=== PATIENT | male | born 1980 | race Caucasian/White ===

== ENCOUNTER 2016-10-15 17:02 | Inpatient (IN) | payer SELFPAY ==
[~2016-10-15] VITALS: Ht 185.4 cm; Wt 86.2 kg
--- NOTE | 2016-10-15 17:15 | NUR ---
pt bibra from homr to er bed 09 c/o lower back pain x 12 days. denies trauma. no back issues. pt states worst today. placed on monitor. awaiting md isaacs.
--- NOTE | 2016-10-15 17:16 | NUR ---
FRANCISCO CUNNINGHAM AT BEDSIDE FOR EVAL.
[2016-10-15] MEDS ORDERED: ONDANSETRON HCL/PF - ER 4 MG/2 ML VIAL IV ONE (17:30)
[2016-10-15] MEDS ORDERED: IV NS 0.9% 1,000 ML BAG IV ONE ×2 (17:30→19:30)
[2016-10-15] MEDS ORDERED: MORPHINE SULFATE INJ 2 MG/ML DISP.SYRIN IV ONE (17:30)
[2016-10-15] MEDS ORDERED: ONDANSETRON HCL/PF 4 MG/2 ML VIAL ONE (17:45)
[2016-10-15] MEDS ORDERED: MORPHINE SULFATE INJ 4 MG/ML DISP.SYRIN ONE (17:45)
[2016-10-15] MEDS ORDERED: HYDROMORPHONE 1 MG/1 ML DISP.SYRIN ONE (18:46)
[2016-10-15] MEDS ORDERED: HYDROMORPHONE 1 MG/1 ML DISP.SYRIN IV ONE (19:00)
--- NOTE | 2016-10-15 19:02 | NUR ---
PT IN TOO MUCH PAIN, WANTS TO HOLD OFF ON CT SCAN. ER WILL CALL WHEN READY.
[2016-10-15 20:28] LABS: BASOPHILS # (AUTO) 0.5 /CMM (0.0-0.2); BASOPHILS % (AUTO) 3.5 % (0.0-2.0); EOSINOPHILS % (AUTO) 0.3 % (0.0-6.0); HEMATOCRIT 41 % (39-51); HEMOGLOBIN 13.7 g/dL (13.5-17.5); LYMPHOCYTES # (AUTO) 1.3 /CMM (0.8-4.8); LYMPHOCYTES % (AUTO) 10.1 % (20.0-44.0); MEAN CORPUSCULAR HEMOGLOBIN 31 PG (26.0-33.0); MEAN CORPUSCULAR HGB CONC 33 g/dl (31.0-36.0); MEAN CORPUSCULAR VOLUME 93 fL (80-96); MONOCYTES # (AUTO) 0.7 /CMM (0.1-1.30); MONOCYTES % (AUTO) 5.7 % (2.0-12.0); NEUTROPHILS # (AUTO) 10.6 /CMM (1.8-8.9); NEUTROPHILS % (AUTO) 80.4 % (43.0-81.0); PLATELET COUNT (AUTO) 649 /CMM (150-450); RDW COEFFICIENT OF VARIATION 12.8 (11.5-15.0); RED BLOOD CELL COUNT(AUTO) 4.44 MIL/uL (4.5-6.0); WHITE BLOOD COUNT (AUTO) 13.1 K/uL (4.3-11.0)
[2016-10-15 20:36] LABS: CALCIUM, SERUM 9.3 mg/dL (8.5-10.1); CREATININE 0.9 mg/dL (0.6-1.3); POTASSIUM 4.6 mmol/L (3.5-5.1)
--- NOTE | 2016-10-15 20:36 | NUR ---
Note danette in EDM - 10/15/16 at 2042 by ALVARO pt bibra from homr to er bed 09 c/o lower back pain x 12 days. denies trauma. no back issues. pt states worst today. placed on monitor. awaiting md isaacs.
--- NOTE | 2016-10-15 20:39 | NUR ---
CALLED NURSING SUP. FOR MS BED
[2016-10-15 21:12] LABS: INR 1.05 (0.87-1.13); PROTHROMBIN TIME 10.9 SECS (9.5-12.7)
--- NOTE | 2016-10-15 21:14 | NUR ---
report given to mariaa. pt awaiting transfer to floor.
[2016-10-15 21:30] VITALS: BP 119/64
[2016-10-15 21:40] VITALS: BP 119/64
[2016-10-15] MEDS ORDERED: MAGNESIUM HYDROXIDE 30 ML UDC PO PRN (22:00)
[2016-10-15] MEDS ORDERED: MAG HYDROX/AL HYDROX/SIMETH 30 ML UDC PO PRN (22:00)
[2016-10-15] MEDS ORDERED: ONDANSETRON HCL/PF 4 MG/2 ML VIAL IVP PRN (22:00)
[2016-10-15] MEDS ORDERED: ACETAMINOPHEN 325 MG TABLET PO PRN (22:00)
[2016-10-15] MEDS ORDERED: ZOLPIDEM TARTRATE 5 MG TABLET PO PRN (22:00)
[2016-10-15] MEDS ORDERED: Z GUARD REMEDY 2 OZ OINT TP PRN (22:00)
[2016-10-15] MEDS ORDERED: DEXAMETHASONE SOD PHOSPHATE 4 MG/ML VIAL ONE (22:15)
[2016-10-15] MEDS ORDERED: CEFTRIAXONE 1 G VIAL ONE (22:16)
[2016-10-15] MEDS ORDERED: CEFTRIAXONE 1 G in IV D5W 50 ML IV SCH (22:30)
--- NOTE | 2016-10-15 22:30 | NUR ---
RN NOTE; ADMITTED A 36Y/O, M ,A, OX4. BREATHING EVENLY. NO SOB/. NO DISTRESS, SKIN WARM AND DRY. W/ C/O SEVERE BACK PAIN UPON MOVEMENT . MEDICAL HX WAS OBTAINED FROM THE PT . VS OBTAINED . PT W/ MILD FEVER. COOLING MEASURES TO BE APPLIED. NEEDS ATTENDED . ASSISTED W/ ADLS . CALL LIGHT WITHIN REACH .WILL CONT TO MONITOR .
[2016-10-15] MEDS: DEXAMETHASONE SOD PHOSPHATE 4 MG/ML VIAL IV SCH (22:36)
[2016-10-15] MEDS ORDERED: ZOLPIDEM TARTRATE 5 MG TABLET ONE (22:42)
--- NOTE | 2016-10-15 22:43 | NUR ---
MEHRDAD GIVEN PER PT'S REQUEST FOR INSOMNIA. WILL CONT TO MONITOR
--- NOTE | 2016-10-16 | NUR ---
INFORMED RUI RUEDA REGARDING PT'S FEVER. SENIOR ABAP DEVELOPER W/ A NEW ORDER FOR U/A AND URINE CULTURE. AND BLOOD CULTURE WHICH WAS ALREADY DRAWN AT THE ER. WILL CONT TO MONITOR.
[2016-10-16 03:34] LABS: APPEARANCE,URINE CLEAR (CLEAR); BILIRUBIN,URINE NEGATIVE (NEGATIVE); BLOOD, URINE NEGATIVE Ery/uL (NEGATIVE); KETONES,URINE NEGATIVE (NEGATIVE); LEUKOCYTE ESTERASE ,URINE NEGATIVE (NEGATIVE); NITRITE, URINE NEGATIVE (NEGATIVE); PH,URINE 7.5 (5.0-8.0); PROTEIN,URINE NEGATIVE (NEGATIVE); UGLUCOSE NEGATIVE (NEGATIVE); UROBILINOGEN,URINE 0.2 EU/dL (0.2)
[2016-10-16 03:39] LABS: COLOR,URINE Light yellow (YELLOW)
--- NOTE | 2016-10-16 06:25 | NUR ---
TEXTED DR. NUNEZ FOR MRI APPROVAL.
--- NOTE | 2016-10-16 06:33 | NUR ---
RN NOTE; PT IN BED AWAKE AND ALERT. BREATHING EVENLY. NO SOB,. NAD. NO C/O PAIN OR DISCOMFORT AT THIS TIME. . NO ACUTE EVENT OVER NIGHT. ON ONGOING IVF HYDRATION JUVENCIO WELL. NEEDS ATTENDED .ASSISTED W/ ADLS. CALL LIGHT WITHIN REACH .WILL CONT TO MONITOR AND WILL ENDORSE TO AM SHIFT FOR THUY.
[2016-10-16 06:57] LABS: HEMATOCRIT 37 % (39-51); HEMOGLOBIN 12.7 g/dL (13.5-17.5); LYMPHOCYTES % (AUTO) 9.7 % (20.0-44.0); MEAN CORPUSCULAR HEMOGLOBIN 32 PG (26.0-33.0); MEAN CORPUSCULAR HGB CONC 34 g/dl (31.0-36.0); MEAN CORPUSCULAR VOLUME 93 fL (80-96); MONOCYTES # (AUTO) 0.4 /CMM (0.1-1.30); MONOCYTES % (AUTO) 4.2 % (2.0-12.0); NEUTROPHILS # (AUTO) 9.1 /CMM (1.8-8.9); NEUTROPHILS % (AUTO) 86.1 % (43.0-81.0); PLATELET COUNT (AUTO) 570 /CMM (150-450); RDW COEFFICIENT OF VARIATION 13.8 (11.5-15.0); RED BLOOD CELL COUNT(AUTO) 3.97 MIL/uL (4.5-6.0); WHITE BLOOD COUNT (AUTO) 10.6 K/uL (4.3-11.0)
--- NOTE | 2016-10-16 07:30 | NUR ---
MS RN NOTES RECEIVED REPORT WITH PATIENT RESTING COMFORTABLY IN BED. PATIENT IS A/OX4. NO S/S OF SOB OR DISTRESS NOTED. IV IS PATENT AND INTACT. CALL LIGHT IS WITHIN REACH. BED IS IN THE LOWEST, LOCKED POSITION. WILL CONTINUE TO MONITOR THROUGHOUT SHIFT.
[2016-10-16 07:43] LABS: ALBUMIN 2.7 g/dL (3.4-5.0); BILIRUBIN,TOTAL 0.5 mg/dL (0.2-1.0); CALCIUM, SERUM 8.6 mg/dL (8.5-10.1); CREATININE 0.8 mg/dL (0.6-1.3); TOTAL PROTEIN, SERUM 7.4 g/dL (6.4-8.2)
[2016-10-16 07:47] LABS: THYROID STIMULATING HORMONE 0.247 uIU/mL (0.358-3.74)
[2016-10-16 08:00] VITALS: BP 119/69
[2016-10-16] MEDS: DEXAMETHASONE SOD PHOSPHATE 4 MG/ML VIAL IV SCH ×2 (08:21→17:28)
[2016-10-16] MEDS: HYDROCODONE/APAP 5/325MG 1 EACH TABLET PO PRN ×3 (08:27→17:48)
[2016-10-16] MEDS ORDERED: AMPH30TA3 PO (08:46)
[2016-10-16] MEDS ORDERED: DIAZEPAM 5 MG TABLET PO PRN (10:00)
[2016-10-16] MEDS: IV NS 0.9% 1,000 ML IV PRN (13:32)
[2016-10-16 16:46] VITALS: BP 115/62
[2016-10-16] MEDS ORDERED: GADOVERSETAMIDE 2.5 MMOL/5 ML VIAL IJ ONE (18:30)
--- NOTE | 2016-10-16 19:21 | NUR ---
MS RN NOTES PATIENT IS A/OX4. PATIENT RESTING COMFORTABLY IN BED. NO S/S OF SOB OR DISTRESS NOTED. IV IS PATENT AND INTACT. ALL PATIENT NEEDS MET. PAIN MANAGED. BED IS IN LOWEST, LOCKED POSITION. CALL LIGHT WITHIN REACH. WILL ENDORSE TO PM SHIFT.
[2016-10-16 20:00] VITALS: BP 115/79
[2016-10-16] MEDS: HYDROMORPHONE INJ 2 MG/ML DISP.SYRIN IV PRN (21:58)
[2016-10-16] MEDS: CEFTRIAXONE 1 G in IV D5W 50 ML IV SCH (22:37)
[2016-10-17] MEDS: HYDROMORPHONE INJ 2 MG/ML DISP.SYRIN IV PRN ×5 (01:55→21:47)
[2016-10-17] MEDS: IV NS 0.9% 1,000 ML IV PRN ×2 (05:08→17:22)
--- NOTE | 2016-10-17 06:55 | NUR ---
MS RN NOTES AWAKE & RESPONSIVE. NOT IN ANY DISTRESS. NO SOB NOTED. DENIES ANY PAIN OR DISCOMFORT AT THIS TIME. WITH IVF INFUSING WELL. MONITORED ACCORDINGLY. CALL LIGHT WITHIN REACH. BED IN LOWEST POSITION. SR UP X3 WITH BED ALARM ON FOR SAFETY . CALL LIGHT WITHIN REACH. BED IN LOWEST POSITION. WILL ENDORSE TO NEXT SHIFT.
--- NOTE | 2016-10-17 07:58 | NUR ---
MS RN OPENING NOTES RECEIVED PT. FROM NIGHTSHIFT NURSE IN STABLE CONDITION. PT. IS A/O X4. NO SOB OR SIGNS NOTED. BREATHING IS EVEN AND UNLABORED. PT COMPLAINS OF A THROBBING, PINCHING PAIN ON HIS RIGHT LOWER BACK RATED A 9/10. WILL ADMINISTER PAIN MEDICATION. IV PRESENT ON ON LEFT FA 20G INFUSING NS @ 75ML/HR. PT. TOLERATING INFUSION WELL. NO REDNESS OR SIGNS OF INFILTRATION NOTED. BED IN LOW LOCKED POSITION, SIDE RAILS UP X2, CALL LIGHT WITHIN REACH. WILL CONTINUE TO MONITOR.
[2016-10-17 08:00] VITALS: BP 121/70
[2016-10-17] MEDS: DEXAMETHASONE SOD PHOSPHATE 4 MG/ML VIAL IV SCH ×2 (08:39→17:22)
[2016-10-17] MEDS: HYDROCODONE/APAP 5/325MG 1 EACH TABLET PO PRN ×4 (09:51→23:07)
[2016-10-17 16:00] VITALS: BP 120/68
--- NOTE | 2016-10-17 18:38 | NUR ---
MS RN CLOSING NOTES PT. REMAINS IN STABLE CONDITION. ALL NEEDS WERE MET DURING SHIFT AND ORDERS CARRIED OUT ACCORDINGLY. PT. STILL REMAINS IN PAIN BUT STATES THAT PAIN IS TOLERABLE WITH PRN NORCO AND DILAUDID. LUMBAR BRACE AT BEDSIDE AND TO BE USED WHEN AMBULATING OR SITTING. PT. VERBALIZES UNDERSTANDING. ALL SAFETY MEASURES REMAIN IN PLACE. WILL ENDORSE TO NIGHTSHIFT NURSE FOR THUY
[2016-10-17 20:00] VITALS: BP 118/57
[2016-10-17] MEDS: CEFTRIAXONE 1 G in IV D5W 50 ML IV SCH (23:07)
[2016-10-18] MEDS: HYDROMORPHONE INJ 2 MG/ML DISP.SYRIN IV PRN ×5 (02:01→20:37)
[2016-10-18] MEDS: HYDROCODONE/APAP 5/325MG 1 EACH TABLET PO PRN ×5 (03:10→22:16)
[2016-10-18 06:43] LABS: BASOPHILS % (AUTO) 0.2 % (0.0-2.0); EOSINOPHILS % (AUTO) 0.2 % (0.0-6.0); HEMATOCRIT 36 % (39-51); HEMOGLOBIN 12.2 g/dL (13.5-17.5); LYMPHOCYTES # (AUTO) 2.1 /CMM (0.8-4.8); LYMPHOCYTES % (AUTO) 21.7 % (20.0-44.0); MEAN CORPUSCULAR HEMOGLOBIN 32 PG (26.0-33.0); MEAN CORPUSCULAR HGB CONC 34 g/dl (31.0-36.0); MEAN CORPUSCULAR VOLUME 93 fL (80-96); MONOCYTES # (AUTO) 0.6 /CMM (0.1-1.30); MONOCYTES % (AUTO) 6.6 % (2.0-12.0); NEUTROPHILS # (AUTO) 6.9 /CMM (1.8-8.9); NEUTROPHILS % (AUTO) 71.3 % (43.0-81.0); PLATELET COUNT (AUTO) 558 /CMM (150-450); RDW COEFFICIENT OF VARIATION 13.7 (11.5-15.0); RED BLOOD CELL COUNT(AUTO) 3.89 MIL/uL (4.5-6.0); WHITE BLOOD COUNT (AUTO) 9.7 K/uL (4.3-11.0)
--- NOTE | 2016-10-18 07:20 | NUR ---
RN MS NOTES PATIENT ASLEEP BUT EASILY AROUSABLE, NO COMPLAINT OF PAIN, NO DISCOMFORT NOTED, BREATHING EVEN AND UNLABORED, BACK BRACE OBSERVED, PIV PATENT AND INTACT, IVF INFUSING WELL, ALL NEEDS ATTENDED, WILL CONTINUET O MONITOR.
[2016-10-18 08:00] VITALS: BP 123/64
[2016-10-18] MEDS: IV NS 0.9% 1,000 ML IV PRN (08:01)
[2016-10-18] MEDS: DEXAMETHASONE SOD PHOSPHATE 4 MG/ML VIAL IV SCH ×2 (09:00→16:45)
[2016-10-18] MEDS ORDERED: VANCOMYCIN 1 GM in IV D5W 250 ML IV ONE (11:30)
[2016-10-18] MEDS ORDERED: FEE PK DOSING 1 MIN EA MC ONE (11:36)
--- NOTE | 2016-10-18 12:36 | NUR ---
RN MS NOTES SPOKE WITH ELTON YORK RE: BOWEL REGIMEN, ORDERED COLACE 100MG BID, AND OK'D TO GIVE MOM X1 NOW FOR CONSTIPATION, ORDER NOTED AND CARRIED OUT.
[2016-10-18] MEDS: VANCOMYCIN 1.5 GM in IV D5W 500 ML IV SCH ×2 (14:07→20:33)
[2016-10-18 16:00] VITALS: BP 133/72
[2016-10-18] MEDS: DOCUSATE SODIUM 100 MG CAPSULE PO SCH (16:45)
--- NOTE | 2016-10-18 18:59 | NUR ---
RN MS NOTES PATIENT ALERT AND ORIENTED, NO DISTRESS NOTED, LEFT UPPER ARM PATENT AND INTACT, PATIENT IN SUPINE POSITION WITH BACK BRACE, PATIENT REFUSED TO BE TURNED LEFT AND RIGHT POSITION DUE TO PAIN, WALKED WITH PHYSICAL THERAPY AND TOLERATED WELL, ALL NEEDS ATTENDED AND MET, CALL LIGHT WITHIN REACH, SAFETY MEASURES IN PLACED, WILL ENDORSE TO ASSISTANT READING TEACHER FOR THUY.
--- NOTE | 2016-10-18 19:30 | NUR ---
MS RN OPENING NOTES: PATIENT IN BED, AOX4, ON ROOM AIR, BREATHING EVEN AND UNLABORED. APPEARS CALM AND IN NO DISTRESS, BUT STATED THAT HE HAS BEEN HAVING "SIGNIFICANT" PAIN SCALED AT 7-8 THROUGH THE DAY, LOCATED MOSTLY ON THE RIGHT SIDE OF HIS BACK. PEPPER PICC LINE RUNNING CONTINUOUSLY WITH NS AT 75 ML/HR. PROVIDED FOR COMFORT AND SAFETY. EXPLAINED PAIN MEDICATIONS SCHEDULE. WILL CONT TO MONITOR.
[2016-10-18 20:38] VITALS: BP 122/63
--- NOTE | 2016-10-18 22:19 | NUR ---
RN NOTES: PATIENT COMPLAINED OF PAIN 7/10 OVER UPPER AND LOWER BACK. ADMINISTERED NORCO 5-325 MG PO. WILL CONT TO MONITOR.
[2016-10-18] MEDS: CEFTRIAXONE 1 G in IV D5W 50 ML IV SCH (23:37)
[2016-10-19] MEDS: IV NS 0.9% 1,000 ML IV PRN (00:13)
[2016-10-19] MEDS: HYDROMORPHONE INJ 2 MG/ML DISP.SYRIN IV PRN ×4 (00:16→14:01)
[2016-10-19] MEDS: HYDROCODONE/APAP 5/325MG 1 EACH TABLET PO PRN ×4 (01:54→16:14)
[2016-10-19 04:24] VITALS: BP 115/62
[2016-10-19] MEDS: VANCOMYCIN 1.5 GM in IV D5W 500 ML IV SCH ×2 (04:26→13:33)
--- NOTE | 2016-10-19 06:20 | NUR ---
RN NOTES: PATIENT SAID THAT HE HAD 1 BM WITH SMEAR AMOUNT OF BRIGHT RED BLOOD. PER PATIENT, HE HAS HEMORRHOIDS, AND THAT THE TEXTURE OF HIS STOOLS HAD BEEN MORE FIRM THAN USUAL. ENCOURAGED PATIENT TO DRINK MORE ORAL FLUIDS, INCREASE FIBER IN DIET. OFFERED PRUNE JUICE. WILL CONT TO MONITOR IF STOOLS WILL HAVE MORE BLEEDING.
--- NOTE | 2016-10-19 06:52 | NUR ---
MS RN CLOSING NOTES: PATIENT IN BED, AOX4, ON ROOM AIR, BREATHING EVEN AND UNLABORED. APPEARS CALM AND IN NO DISTRESS, STILL COMPLAINING OF PAIN OVER BACK, SCALED AT 6/10. DUE MEDS GIVEN. PEPPER PICC LINE INTACT AND INFUSING WELL WITH NS RUNNING AT 75 ML/HR. PROVIDED FOR COMFORT AND SAFETY. NO ACUTE CHANGE IN CONDITION NOTED THROUGH SHIFT. WILL ENDORSE TO AM RN FOR THUY.
[2016-10-19 06:55] LABS: CALCIUM, SERUM 8.6 mg/dL (8.5-10.1); CREATININE 0.6 mg/dL (0.6-1.3); POTASSIUM 3.5 mmol/L (3.5-5.1)
--- NOTE | 2016-10-19 07:31 | NUR ---
RN MS NOTES RECEIVED PATIENT IN BED VERBALLY RESPONSIVE. NO APPARENT DISTRESS NOTED, NO C/O PAIN, DENIES SOB. PEPPER PICC LINE PATENT, INFUSING NS AT 75ML/HR. ALL NEEDS MET, CALL LIGHT WITHIN REACH.
[2016-10-19 08:00] VITALS: BP 110/60
[2016-10-19] MEDS: DEXAMETHASONE SOD PHOSPHATE 4 MG/ML VIAL IV SCH ×2 (09:22→16:13)
[2016-10-19] MEDS: DOCUSATE SODIUM 100 MG CAPSULE PO SCH ×2 (09:22→16:13)
--- NOTE | 2016-10-19 18:30 | NUR ---
RN MS CLOSING NOTES PATIENT LEFT IN STABLE CONDITION, VIA PRIVATE CAR ACCOMPANIED BY HIS FRIEND. NO APPARENT DISTRESS NOTED, DENIES SOB, WITH C/O PAIN IN LOWER BACK. PAIN MEDICATION GIVEN PRIOR TO DISCHARGE, ALL DUE MEDS GIVEN ALL NEEDS MET. PATIENT WILL BE DISCHARGED HOME WITH PICC LINE FOR CONTINUATION OF IV ATB X 6 WEEKS. PICC LINE PATENT AND INTACT, NO S/S OF INFECTION NOTED. PATIENT EDUCATION ON PICC LINE CARE PROVIDED, HOME HEALTH NURSE WILL F/U. PRESCRIPTION GIVEN TO PATIENT EDUCATION PROVIDED FOR NEW MEDICATIONS. DISCHARGE INSTRUCTIONS REVIEWED WITH PATIENT, HE SATED UNDERSTANDING.
== END 2016-10-19 18:33 | disposition home or self-care (01) | DRG 540 ==
LOC: ER 17:04 → EDBD 21:08 → MED 21:08
PROVIDERS: ADMIT Nurse Practitioner Acute Care; ATTEND Nurse Practitioner Acute Care
DX: M46.26 Osteomyelitis of vertebra, lumbar region (principal); N12 Tubulo-interstitial nephritis, not specified as acute or chronic; N39.0 Urinary tract infection, site not specified; F17.210 Nicotine dependence, cigarettes, uncomplicated; M46.46 Discitis, unspecified, lumbar region; V89.2XXS Person injured in unspecified motor-vehicle accident, traffic, sequela; S91.011A Laceration without foreign body, right ankle, initial encounter; X58.XXXA Exposure to other specified factors, initial encounter; Y93.9 Activity, unspecified; Y92.89 Other specified places as the place of occurrence of the external cause; Z71.6 Tobacco abuse counseling
CPT/HCPCS: 36415; 36569; 72131-TC; 72158-TC; 80048-TC; 80053-TC; 80061-TC; 80202-TC; 81000-TC; 83735-TC; 84100-TC; 84443-TC; 85025-TC; 85610-TC; 85652-TC; 85730-TC; 86140-TC; 87040-TC; 87081-TC; 87086-TC; 97001-TC; 97116-TC; 97530-TC; A4606; A6403; A9579; C1751; J0696; J1100; J1170; J2270; J2405; J3370; J7030; J7060; Z7610